=== PATIENT | female | born 1980 | race Caucasian/White ===

== ENCOUNTER → 2017-01-18 | Outpatient (CLI) | payer OTHER ==
[2017-01-18 08:18] LABS: ABSOLUTE BASOPHILS # (AUTO) 0.1 10^3/uL (0.0-0.2); ABSOLUTE EOSINOPHILS # (AUTO) 1.3 10^3/uL (0.0-0.6); ABSOLUTE LYMPHOCYTES (AUTO) 1.9 10^3/uL (0.5-4.7); ABSOLUTE MONOCYTES (AUTO) 0.5 10^3/uL (0.1-1.4); ABSOLUTE NEUT (AUTO) 3.7 10^3/uL (1.7-8.2); BASOPHILS % (AUTO) 1.1 % (0-2); HEMATOCRIT 41.4 % (36.0-47.0); HEMOGLOBIN 14.5 g/dL (12.0-15.5); HGB HCT DIFFERENCE 2.1; LYMPHOCYTES % (AUTO) 25.7 % (13-45); MEAN CORPUSCULAR HEMOGLOBIN 30.6 pg (27.0-33.4); MEAN CORPUSCULAR VOLUME 87 fl (80-97); MONOCYTES % (AUTO) 6.6 % (3-13); RED BLOOD COUNT 4.74 10^6/uL (3.72-5.28); RED CELL DISTRIBUTION WIDTH 12.6 % (11.5-14.0); SEGMENTED NEUTROPHILS % (AUTO) 49.6 % (42-78); WHITE BLOOD COUNT 7.6 10^3/uL (4.0-10.5)
[2017-01-18 08:31] LABS: ALANINE AMINOTRANSFERASE 43 U/L (9-52); ALBUMIN 4.8 g/dL (3.5-5.0); ALKALINE PHOSPHATASE 50 U/L (38-126); ANION GAP 14 (5-19); ASPARTATE AMINO TRANSFERASE 26 U/L (14-36); BILIRUBIN,DIRECT 0.3 mg/dL (0.0-0.4); BILIRUBIN,TOTAL 0.5 mg/dL (0.2-1.3); BLOOD UREA NITROGEN 11 mg/dL (7-20); CALCIUM 9.7 mg/dL (8.4-10.2); CARBON DIOXIDE 26 mmol/L (22-30); CHLORIDE 103 mmol/L (98-107); CHOLESTEROL 185.96 mg/dL (0-200); Direct HDL 65 mg/dL (>40); GLUCOSE 89 mg/dL (75-110); POTASSIUM 4.2 mmol/L (3.6-5.0); SODIUM 143.3 mmol/L (137-145); TOTAL PROTEIN 7.2 g/dL (6.3-8.2); TRIGLYCERIDES 67 mg/dL (<150)
[2017-01-18 08:42] LABS: DIRECT LDL 98 mg/dL (<100)
== END ==
LOC: OD 07:45
PROVIDERS: ATTEND Psychiatry & Neurology Psychiatry
DX: F41.1 Generalized anxiety disorder (principal); Z79.899 Other long term (current) drug therapy
CPT/HCPCS: 36415; 80053; 80061; 83036; 84443; 85025

== ENCOUNTER 2018-05-18 23:01 | Inpatient (IN) | payer OTHER ==
[2018-05-19] MEDS ORDERED: ONDANSETRON HCL INJ/PF 4 MG/2 ML SDV IV ONE (00:10)
[2018-05-19] MEDS ORDERED: MORPHINE SULFATE 10 MG/ML INJ IV ONE (00:10)
[2018-05-19] MEDS ORDERED: NORMAL SALINE 1000 ML 1,000 ML IV ONE (00:10)
[2018-05-19] MEDS ORDERED: HYDROMORPHONE HCL INJ/PF 2 MG/ML AMPULE IV ONE (00:40)
[2018-05-19 00:43] LABS: ABSOLUTE LYMPHOCYTES (AUTO) 0.9 10^3/uL (0.5-4.7); ABSOLUTE MONOCYTES (AUTO) 0.9 10^3/uL (0.1-1.4); ABSOLUTE NEUT (AUTO) 11.5 10^3/uL (1.7-8.2); BASOPHILS % (AUTO) 0.2 % (0-2); EOSINOPHILS % (AUTO) 0.1 % (0-6); HEMATOCRIT 35.7 % (36.0-47.0); HEMOGLOBIN 12.7 g/dL (12.0-15.5); LYMPHOCYTES % (AUTO) 6.7 % (13-45); MEAN CORPUSCULAR HEMOGLOBIN 34.3 pg (27.0-33.4); MEAN CORPUSCULAR HGB CONC 35.5 g/dL (32.0-36.0); MEAN CORPUSCULAR VOLUME 97 fl (80-97); MONOCYTES % (AUTO) 6.4 % (3-13); PLATELET COUNT 437 10^3/uL (150-450); RED BLOOD COUNT 3.69 10^6/uL (3.72-5.28); RED CELL DISTRIBUTION WIDTH 15.8 % (11.5-14.0); SEGMENTED NEUTROPHILS % (AUTO) 86.6 % (42-78); TOTAL CELLS COUNTED % (AUTO) 100 %; WHITE BLOOD COUNT 13.3 10^3/uL (4.0-10.5)
[2018-05-19 00:55] LABS: ALANINE AMINOTRANSFERASE 60 U/L (9-52); ALBUMIN 4.2 g/dL (3.5-5.0); ALKALINE PHOSPHATASE 59 U/L (38-126); ANION GAP 10 (5-19); ASPARTATE AMINO TRANSFERASE 35 U/L (14-36); BILIRUBIN,DIRECT 0.1 mg/dL (0.0-0.4); BILIRUBIN,TOTAL 0.8 mg/dL (0.2-1.3); BLOOD UREA NITROGEN 9 mg/dL (7-20); CALCIUM 9.7 mg/dL (8.4-10.2); CARBON DIOXIDE 23 mmol/L (22-30); CHLORIDE 100 mmol/L (98-107); GLUCOSE 131 mg/dL (75-110); SODIUM 132.8 mmol/L (137-145); TOTAL PROTEIN 7.3 g/dL (6.3-8.2)
[2018-05-19 01:17] LABS: LIPASE 10925.4 U/L (23-300)
--- NOTE | 2018-05-19 01:57 | ER Document Report ---
ED GI/ - General Chief Complaint: Abdominal Pain Stated Complaint: VOMITING Time Seen by Provider: 05/19/18 00:08 Mode of Arrival: Ambulatory Notes: Patient presented to the emergency room with abdominal pain associated with nausea and vomiting which started today. TRAVEL OUTSIDE OF THE [place] IN LAST 30 DAYS: No - HPI Patient complains to provider of: Abdominal pain, Vomiting Onset: Just prior to arrival Timing/Duration: Sudden Quality of pain: Sharp Severity at maximum: Severe Severity in ED: Severe Pain Level: 5 Location: Epigastric Vaginal bleeding (Compared to normal period): None OB ultrasound done: No vitamins taken: No Associated symptoms: Vomiting Exacerbated by: Denies Relieved by: Denies Similar symptoms previously: No Recently seen / treated by doctor: No - Related Data Allergies/Adverse Reactions: lidocaine [From Topicaine] Allergy (Verified 05/19/18 00:17) Past Medical History - Social History Smoking Status: Never Smoker Frequency of alcohol use: None Drug Abuse: None Family History: Reviewed & Not Pertinent Patient has suicidal ideation: No Patient has homicidal ideation: No Renal/ Medical History: Denies: Hx Peritoneal Dialysis Review of Systems - Review of Systems Constitutional: No symptoms reported EENT: No symptoms reported Cardiovascular: No symptoms reported Respiratory: No symptoms reported Gastrointestinal: Abdominal pain, Nausea, Vomiting Genitourinary: No symptoms reported Female Genitourinary: No symptoms reported Musculoskeletal: No symptoms reported Skin: No symptoms reported Hematologic/Lymphatic: No symptoms reported Neurological/Psychological: No symptoms reported -: Yes All other systems reviewed and negative Physical Exam - Vital signs Vitals: Temp Pulse Resp BP Pulse Ox 98.6 F 69 20 135/119 H 100 05/18/18 23:07 05/18/18 23:07 05/18/18 23:07 05/18/18 23:07 05/18/18 23:07 Interpretation: Normal - General General appearance: Appears well, Alert In distress: Moderate - HEENT Head: Normocephalic, Atraumatic Eyes: Normal Pupils: PERRL - Respiratory Respiratory status: No respiratory distress Chest status: Nontender Breath sounds: Normal Chest palpation: Normal - Cardiovascular Rhythm: Regular Heart sounds: Normal auscultation Murmur: No - Abdominal Inspection: Normal Distension: No distension Bowel sounds: Normal Tenderness: Tender - Epigastric area., Guarding. No: Rebound Organomegaly: No organomegaly - Back Back: Normal, Nontender - Extremities General upper extremity: Normal inspection, Nontender, Normal color, Normal ROM, Normal temperature General lower extremity: Normal inspection, Nontender, Normal color, Normal ROM, Normal temperature, Normal weight bearing. No: Wendy's sign - Neurological Neuro grossly intact: Yes Cognition: Normal Orientation: AAOx4 [place] Coma Scale Eye Opening: Spontaneous [place] Coma Scale Verbal: Oriented [place] Coma Scale Motor: Obeys Commands [place] Coma Scale Total: 15 Speech: Normal Motor strength normal: LUE, RUE, LLE, RLE Sensory: Normal - Psychological Associated symptoms: Normal affect, Normal mood - Skin Skin Temperature: Warm Skin Moisture: Dry Skin Color: Normal Course - Vital Signs Vital signs: Temp Pulse Resp BP Pulse Ox 97.3 F 69 19 135/77 H 100 05/19/18 04:39 05/18/18 23:07 05/19/18 04:00 05/19/18 03:01 05/19/18 04:49 - Laboratory Result Diagrams: 05/19/18 00:13 05/19/18 00:13 Laboratory results interpreted by me: 05/19/18 05/19/18 00:13 00:13 WBC 13.3 H RBC 3.69 L Hct 35.7 L MCH 34.3 H RDW 15.8 H Seg Neutrophils % 86.6 H Lymphocytes % 6.7 L Absolute Neutrophils 11.5 H Sodium 132.8 L Glucose 131 H ALT 60 H Lipase 71219.4 H - Diagnostic Test Radiology reviewed: Reports reviewed - Transfer of Care Notes: 05/19/18 03:27 Patient care was discussed with Dr. Jonas Pinzon who is the hospitalist human relations professor that we admit the patient to the hospital for further evaluation and management. Patient is medically stable at this point. Critical Care Note - Critical Care Note Total time excluding time spent on procedures (mins): 40 Discharge - Discharge Clinical Impression: Acute pancreatitis Qualifiers: Pancreatitis type: unspecified pancreatitis type Acute pancreatitis complication: unspecified Qualified Code(s): K85.90 - Acute pancreatitis without necrosis or infection, unspecified Abdominal pain Qualifiers: Abdominal location: epigastric Qualified Code(s): R10.13 - Epigastric pain Nausea and vomiting Qualifiers: Vomiting type: unspecified Vomiting Intractability: non-intractable Qualified Code(s): R11.2 - Nausea with vomiting, unspecified Condition: Stable Disposition: ADMITTED INPATIENT Admitting Provider: Hospitalist Unit Admitted: Medical Floor
[2018-05-19 02:19] LABS: APPEARANCE,URINE CLEAR; BILIRUBIN,URINE NEGATIVE (NEGATIVE); COLOR,URINE STRAW; GLUCOSE, URINE NEGATIVE (NEGATIVE); KETONES,URINE NEGATIVE (NEGATIVE); LEUKOCYTE ESTERASE,URINE NEGATIVE (NEGATIVE); NITRITE,URINE NEGATIVE (NEGATIVE); PROTEIN,URINE NEGATIVE (NEGATIVE); URINE SPECIFIC GRAVITY 1.005; UROBILINOGEN,URINE NEGATIVE mg/dL (<2.0)
--- NOTE | 2018-05-19 02:58 | RADIOLOGY REPORT (SQ) ---
EXAM DESCRIPTION: CT ABDOMEN PELVIS WITH IV CONTRAST COMPLETED DATE/TME: 05/19/2018 01:52 CLINICAL HISTORY: 38 years Female, Abdominal pain. Comparison: None. Technique: IV contrast. Coronal and sagittal reformat. This exam was performed according to our departmental dose-optimization program, which includes automated exposure control, adjustment of the mA and/or kV according to patient size and/or use of iterative reconstruction technique. [facility]: Dose Right [facility]: CareDose [facility]: Dose Right [facility]: Teradose 4D [facility]: Wolfpack Chassis LIMITATIONS: None Findings: Moderate fat inflammation of the right upper abdominal quadrant includes moderate fluid and fat streaking between the pancreas, second portion of the duodenum, and the inferior aspect of the gallbladder. Tubal ligation clips. Normal appendix. No bowel obstruction. No hydronephrosis or hydroureter. No renal/ureteral stone. Inferior thorax, liver, gallbladder, pancreas, spleen, adrenals, renal system, gastrointestinal tract, pelvic organs, lymphatics, vasculature, and musculoskeleton appear otherwise unremarkable. IMPRESSION: Moderate pancreatitis pattern.
[2018-05-19] MEDS ORDERED: PIPERACILLIN/TAZOBACTAM 3.375 GM VIAL IV ONE (03:11)
[2018-05-19] MEDS ORDERED: MAG HYDROX/AL HYDROX/SIMETH SUSP 30 ML UDCUP PO PRN (03:28)
[2018-05-19] MEDS ORDERED: ACETAMINOPHEN 650 MG SUPP.RECT PR PRN (03:28)
[2018-05-19] MEDS: ONDANSETRON HCL INJ/PF 4 MG/2 ML SDV IV PRN (04:21)
[2018-05-19] MEDS: MORPHINE SULFATE 10 MG/ML INJ IV PRN ×3 (04:22→21:39)
[2018-05-19] MEDS: NORMAL SALINE 1000 ML 1,000 ML IV PRN ×2 (04:26→11:54)
[2018-05-19] MEDS: KETOROLAC TROMETHAMINE INJ/PF 30 MG/1 ML SDV IV PRN ×3 (04:30→20:13)
[2018-05-19] MEDS ORDERED: IMIPENEM/CILASTATIN SODIUM 1,000 MG in NORMAL SALINE 250 ML IV SCH (06:00)
--- NOTE | 2018-05-19 06:28 | PDOC H&P ---
History of Present Illness Admission Date/PCP: 05/19/18 03:54 Patient complains of: Abdominal pain and nausea History of Present Illness: TUTU MCCORD is a 38 year old female with a past medical history of ulcerative colitis on Humira. Patient presents with 2 days of dull epigastric abdominal pain radiating to the back associated with nausea and vomiting of gastric content x1. Prompting evaluation emergency room where she is found to have a lipase of 10,000 without LFT derangement. She receives symptomatic management and referred to the hospitalist for admission. She denies alcohol, recent viral illness or previous episode but admits to several herbal supplements. Past Medical History Medical History: None GI Medical History: Reports: Ulcerative Colitis Past Surgical History Past Surgical History: Reports: Section Social History Information Source: Patient, ON LICENSE OF [facility] Records Lives with: Family Smoking Status: Never Smoker Frequency of Alcohol Use: None Drugs: None - Advance Directive Resuscitation Status: Full Code Family History Family History: Other - Ulcerative colitis Parental Family History Reviewed: Yes Children Family History Reviewed: Yes Sibling(s) Family History Reviewed.: Yes Medication/Allergy Allergies/Adverse Reactions: lidocaine [From Topicaine] Allergy (Verified 05/19/18 00:17) Review of Systems Constitutional: ABSENT: chills, fever(s), headache(s), weight gain, weight loss Eyes: ABSENT: visual disturbances Ears: ABSENT: hearing changes Cardiovascular: ABSENT: chest pain, dyspnea on exertion, edema, orthropnea, palpitations Respiratory: ABSENT: cough, hemoptysis Gastrointestinal: ABSENT: abdominal pain, constipation, diarrhea, hematemesis, hematochezia, nausea, vomiting Genitourinary: ABSENT: dysuria, hematuria Musculoskeletal: ABSENT: joint swelling Integumentary: ABSENT: rash, wounds Neurological: ABSENT: abnormal gait, abnormal speech, confusion, dizziness, focal weakness, syncope Psychiatric: ABSENT: anxiety, depression, homidical ideation, suicidal ideation Endocrine: ABSENT: cold intolerance, heat intolerance, polydipsia, polyuria Hematologic/Lymphatic: ABSENT: easy bleeding, easy bruising Physical Exam Vital Signs: Temp Pulse Resp BP Pulse Ox 97.3 F 69 19 135/77 H 100 05/19/18 04:39 05/18/18 23:07 05/19/18 04:00 05/19/18 03:01 05/19/18 04:49 Intake & Output 05/17/18 05/18/18 05/19/18 11:59 11:59 11:59 Intake Total 1000 Balance 1000 Weight 65.771 kg General appearance: PRESENT: cooperative, mild distress, thin. ABSENT: disheveled, hard of hearing Head exam: PRESENT: atraumatic, normocephalic Eye exam: PRESENT: conjunctiva pink, EOMI, PERRLA. ABSENT: scleral icterus Ear exam: PRESENT: normal external ear exam Mouth exam: PRESENT: moist, tongue midline Neck exam: ABSENT: carotid bruit, JVD, lymphadenopathy, thyromegaly Respiratory exam: PRESENT: clear to auscultation jesse. ABSENT: rales, rhonchi, wheezes Cardiovascular exam: PRESENT: tachycardia. ABSENT: diastolic murmur, rubs, systolic murmur Pulses: PRESENT: normal dorsalis pedis pul Vascular exam: PRESENT: normal capillary refill GI/Abdominal exam: PRESENT: hyperactive bowel sounds, normal bowel sounds, soft, tenderness. ABSENT: distended, guarding, mass, organolmegaly, rebound Rectal exam: PRESENT: deferred Extremities exam: PRESENT: full ROM. ABSENT: calf tenderness, clubbing, pedal edema Neurological exam: PRESENT: alert, awake, oriented to person, oriented to place, oriented to time, oriented to situation, CN II-XII grossly intact. ABSENT: motor sensory deficit Psychiatric exam: PRESENT: appropriate affect, normal mood. ABSENT: homicidal ideation, suicidal ideation Skin exam: PRESENT: dry, intact, warm. ABSENT: cyanosis, rash Results Laboratory Results: 05/19/18 05/19/18 05/19/18 00:13 00:13 00:13 WBC 13.3 H RBC 3.69 L Hgb 12.7 Hct 35.7 L MCV 97 MCH 34.3 H MCHC 35.5 RDW 15.8 H Plt Count 437 Seg Neutrophils % 86.6 H Lymphocytes % 6.7 L Monocytes % 6.4 Eosinophils % 0.1 Basophils % 0.2 Absolute Neutrophils 11.5 H Absolute Lymphocytes 0.9 Absolute Monocytes 0.9 Absolute Eosinophils 0.0 Absolute Basophils 0.0 Sodium 132.8 L Potassium 4.0 Chloride 100 Carbon Dioxide 23 Anion Gap 10 BUN 9 Creatinine 0.54 Est GFR ( Amer) > 60 Est GFR (Non-Af Amer) > 60 Glucose 131 H Calcium 9.7 Total Bilirubin 0.8 AST 35 ALT 60 H Alkaline Phosphatase 59 Total Protein 7.3 Albumin 4.2 Lipase 84575.4 H Serum HCG, Qual NEGATIVE Urine Color Urine Appearance Urine pH Ur Specific [place] Urine Protein Urine Glucose (UA) Urine Ketones Urine Blood Urine Nitrite Ur Leukocyte Esterase Urine RBC (Auto) 05/19/18 02:03 WBC RBC Hgb Hct MCV MCH MCHC RDW Plt Count Seg Neutrophils % Lymphocytes % Monocytes % Eosinophils % Basophils % Absolute Neutrophils Absolute Lymphocytes Absolute Monocytes Absolute Eosinophils Absolute Basophils Sodium Potassium Chloride Carbon Dioxide Anion Gap BUN Creatinine Est GFR ( Amer) Est GFR (Non-Af Amer) Glucose Calcium Total Bilirubin AST ALT Alkaline Phosphatase Total Protein Albumin Lipase Serum HCG, Qual Urine Color STRAW Urine Appearance CLEAR Urine pH 9.0 Ur Specific [place] 1.005 Urine Protein NEGATIVE Urine Glucose (UA) NEGATIVE Urine Ketones NEGATIVE Urine Blood NEGATIVE Urine Nitrite NEGATIVE Ur Leukocyte Esterase NEGATIVE Urine RBC (Auto) 1 Impressions: Abdomen/Pelvis CT 05/19/18 01:52 IMPRESSION: Moderate pancreatitis pattern. Assessment and Plan - Diagnosis (1) Acute pancreatitis Qualifiers: Pancreatitis type: unspecified pancreatitis type Acute pancreatitis complication: unspecified Qualified Code(s): K85.90 - Acute pancreatitis without necrosis or infection, unspecified Is this a current diagnosis for this admission?: Yes Plan: Complicated by ulcerative colitis and herbal supplement use. CT negative for necrosis, supportive care, bowel rest, consider imipenem, consult patient's gastroenterology and [facility]. (2) Ulcerative colitis Is this a current diagnosis for this admission?: Yes Plan: Anticipate flare, intolerant of Remeron, Solu-Medrol as needed. (3) Abdominal pain Qualifiers: Abdominal location: epigastric Qualified Code(s): R10.13 - Epigastric pain Is this a current diagnosis for this admission?: Yes Plan: Symptomatic management (4) Nausea and vomiting Qualifiers: Vomiting type: unspecified Vomiting Intractability: non-intractable Qualified Code(s): R11.2 - Nausea with vomiting, unspecified Is this a current diagnosis for this admission?: Yes Plan: Secondary to #1, symptomatic management - Time Time Spent with patient: 35 or more minutes - Inpatient Certification Medical Necessity: Need Close Monitoring Due to Risk of Patient Decompensation
[2018-05-19 06:34] LABS: ABSOLUTE EOSINOPHILS # (AUTO) 0.1 10^3/uL (0.0-0.6); ABSOLUTE LYMPHOCYTES (AUTO) 1.8 10^3/uL (0.5-4.7); ABSOLUTE MONOCYTES (AUTO) 1.1 10^3/uL (0.1-1.4); ABSOLUTE NEUT (AUTO) 9.3 10^3/uL (1.7-8.2); BASOPHILS % (AUTO) 0.2 % (0-2); EOSINOPHILS % (AUTO) 0.7 % (0-6); HEMATOCRIT 31.9 % (36.0-47.0); HEMOGLOBIN 11.3 g/dL (12.0-15.5); LYMPHOCYTES % (AUTO) 14.6 % (13-45); MEAN CORPUSCULAR HEMOGLOBIN 34.3 pg (27.0-33.4); MEAN CORPUSCULAR HGB CONC 35.4 g/dL (32.0-36.0); MEAN CORPUSCULAR VOLUME 97 fl (80-97); MONOCYTES % (AUTO) 8.7 % (3-13); PLATELET COUNT 392 10^3/uL (150-450); RED CELL DISTRIBUTION WIDTH 15.3 % (11.5-14.0); SEGMENTED NEUTROPHILS % (AUTO) 75.8 % (42-78); TOTAL CELLS COUNTED % (AUTO) 100 %; WHITE BLOOD COUNT 12.3 10^3/uL (4.0-10.5)
[2018-05-19] MEDS: HEPARIN SOD (PORCINE) 5,000 UNIT/ML 1 ML SYRINGE SUBCUT SCH ×3 (06:46→22:00)
[2018-05-19 06:49] LABS: ALANINE AMINOTRANSFERASE 46 U/L (9-52); ALBUMIN 3.2 g/dL (3.5-5.0); ALKALINE PHOSPHATASE 42 U/L (38-126); ANION GAP 10 (5-19); ASPARTATE AMINO TRANSFERASE 19 U/L (14-36); BILIRUBIN,DIRECT 0.2 mg/dL (0.0-0.4); BILIRUBIN,TOTAL 0.8 mg/dL (0.2-1.3); BLOOD UREA NITROGEN 7 mg/dL (7-20); CARBON DIOXIDE 21 mmol/L (22-30); CHLORIDE 105 mmol/L (98-107); GLUCOSE 104 mg/dL (75-110); POTASSIUM 3.7 mmol/L (3.6-5.0); SODIUM 135.5 mmol/L (137-145); TOTAL PROTEIN 5.4 g/dL (6.3-8.2)
[2018-05-19] MEDS: IMIPENEM/CILASTATIN SODIUM 1,000 MG in NORMAL SALINE 250 ML IV SCH ×3 (08:56→20:13)
[2018-05-19] MEDS: FAMOTIDINE INJ/PF 20 MG/2 ML SDV IV SCH ×2 (09:03→21:32)
[2018-05-19] MEDS ORDERED: PROMETHAZINE HCL INJ 25 MG/1 ML VIAL ONE (10:22)
[2018-05-19] MEDS ORDERED: PROMETHAZINE HCL INJ 25 MG/1 ML VIAL IV PRN (14:45)
[2018-05-19] MEDS: RINGERS SOLUTION,LACTATED 1,000 ML IV PRN ×2 (14:51→20:11)
[2018-05-19] MEDS ORDERED: BISACODYL 10 MG SUPP.RECT PR PRN (15:08)
[2018-05-19] MEDS: METHYLPREDNISOLONE INJ 40 MG/1 ML SDV IV SCH ×2 (15:30→21:33)
--- NOTE | 2018-05-19 16:30 | Progress Note ---
Provider Note Provider Note: Patient admitted for acute pancreatitis, having some improvement of her abdominal pain. said she takes prednisone for UC and hasn't had in a couple of days, will initiate low-dose Solu-Medrol until she can take p.o. again. Also feels like that because she has not had a bowel movement in a couple of days that is making her symptoms worse, and she usually has 1 or 2 bowel movements a day because of her UC, and has requested something for that. Because she is n.p.o. I told her I could give her a suppository, and she agreed to that.
[2018-05-20] MEDS: RINGERS SOLUTION,LACTATED 1,000 ML IV PRN (01:55)
[2018-05-20] MEDS: ONDANSETRON HCL INJ/PF 4 MG/2 ML SDV IV PRN (02:02)
[2018-05-20] MEDS: IMIPENEM/CILASTATIN SODIUM 1,000 MG in NORMAL SALINE 250 ML IV SCH ×2 (02:06→09:34)
[2018-05-20] MEDS: KETOROLAC TROMETHAMINE INJ/PF 30 MG/1 ML SDV IV PRN ×3 (02:06→15:22)
[2018-05-20 06:27] LABS: ABSOLUTE LYMPHOCYTES (AUTO) 0.6 10^3/uL (0.5-4.7); ABSOLUTE MONOCYTES (AUTO) 0.6 10^3/uL (0.1-1.4); ABSOLUTE NEUT (AUTO) 8.7 10^3/uL (1.7-8.2); BASOPHILS % (AUTO) 0.2 % (0-2); EOSINOPHILS % (AUTO) 0.1 % (0-6); HEMATOCRIT 30.5 % (36.0-47.0); LYMPHOCYTES % (AUTO) 5.8 % (13-45); MEAN CORPUSCULAR HEMOGLOBIN 35.2 pg (27.0-33.4); MEAN CORPUSCULAR HGB CONC 36.2 g/dL (32.0-36.0); MEAN CORPUSCULAR VOLUME 97 fl (80-97); MONOCYTES % (AUTO) 6.4 % (3-13); PLATELET COUNT 349 10^3/uL (150-450); RED BLOOD COUNT 3.14 10^6/uL (3.72-5.28); RED CELL DISTRIBUTION WIDTH 16.1 % (11.5-14.0); SEGMENTED NEUTROPHILS % (AUTO) 87.5 % (42-78); TOTAL CELLS COUNTED % (AUTO) 100 %; WHITE BLOOD COUNT 9.9 10^3/uL (4.0-10.5)
[2018-05-20] MEDS: HEPARIN SOD (PORCINE) 5,000 UNIT/ML 1 ML SYRINGE SUBCUT SCH (06:28)
[2018-05-20 06:45] LABS: ALANINE AMINOTRANSFERASE 39 U/L (9-52); ALBUMIN 3.1 g/dL (3.5-5.0); ALKALINE PHOSPHATASE 46 U/L (38-126); ANION GAP 6 (5-19); ASPARTATE AMINO TRANSFERASE 13 U/L (14-36); BILIRUBIN,TOTAL 0.6 mg/dL (0.2-1.3); BLOOD UREA NITROGEN 9 mg/dL (7-20); CALCIUM 9.2 mg/dL (8.4-10.2); CARBON DIOXIDE 21 mmol/L (22-30); CHLORIDE 107 mmol/L (98-107); GLUCOSE 88 mg/dL (75-110); POTASSIUM 4.4 mmol/L (3.6-5.0); SODIUM 133.8 mmol/L (137-145); TOTAL PROTEIN 5.8 g/dL (6.3-8.2)
--- NOTE | 2018-05-20 07:42 | PDOC PROGRESS REPORT ---
Subjective Progress Note for:: 05/20/18 Subjective:: TUTU MCCORD is a 38 year old female with a past medical history of ulcerative colitis on Humira. Patient presents with 2 days of dull epigastric abdominal pain radiating to the back associated with nausea and vomiting of gastric content x1. Prompting evaluation emergency room where she is found to have a lipase of 10,000 without LFT derangement. She received symptomatic management and referred to the hospitalist for admission. She denies alcohol, recent viral illness or previous episode but admits to several herbal supplements. 05/20/2018. No acute events overnight. Abdominal pain is improving. Had one bowel movement this morning. Passing flatus. Persistent mild nausea has had 2 episodes of nonbloody nonbilious vomiting since yesterday. Denies any fever, chills, shortness of breath, chest pain, urinary symptoms. Denies any history of alcoholism, recent viral infection, abdominal trauma, hyperlipidemia. Patient attributes her pancreatitis to 6-mercaptopurine that she has been on chronically for her ulcerative colitis. Humira was added biweekly a year ago which was increased to weekly recently. She is due for her Humira injection today. Need to call her management coordinator at [facility] to see if they want to continue 6-mercaptopurine and Humira at this point. Continue Solu-Medrol at this point. Advance diet as tolerated. Reason For Visit: ACUTE PANCREATITIS ABD PAIN Physical Exam Vital Signs: Temp Pulse Resp BP Pulse Ox 98.4 F 76 16 100/55 L 97 05/20/18 00:00 05/20/18 00:00 05/20/18 00:00 05/20/18 00:00 05/20/18 00:00 Intake & Output 05/19/18 05/20/18 05/21/18 06:59 06:59 06:59 Intake Total 1000 4996 Output Total 200 Balance 1000 4796 Weight 65.771 kg 65.8 kg General appearance: PRESENT: no acute distress, well-developed, well-nourished Head exam: PRESENT: atraumatic, normocephalic Respiratory exam: PRESENT: clear to auscultation jesse. ABSENT: rales, rhonchi, wheezes Cardiovascular exam: PRESENT: RRR. ABSENT: diastolic murmur, rubs, systolic murmur GI/Abdominal exam: PRESENT: guarding, normal bowel sounds, soft, tenderness. ABSENT: distended, mass, organolmegaly, rebound Extremities exam: PRESENT: full ROM. ABSENT: calf tenderness, clubbing, pedal edema Neurological exam: PRESENT: alert, awake, oriented to person, oriented to place, oriented to time, oriented to situation, CN II-XII grossly intact. ABSENT: motor sensory deficit Results Laboratory Results: 05/20/18 06:04 05/20/18 06:04 05/19/18 05/20/18 05/20/18 06:11 06:04 06:04 WBC 9.9 RBC 3.14 L Hgb 11.0 L Hct 30.5 L MCV 97 MCH 35.2 H MCHC 36.2 H RDW 16.1 H Plt Count 349 Seg Neutrophils % 87.5 H Lymphocytes % 5.8 L Monocytes % 6.4 Eosinophils % 0.1 Basophils % 0.2 Absolute Neutrophils 8.7 H Absolute Lymphocytes 0.6 Absolute Monocytes 0.6 Absolute Eosinophils 0.0 Absolute Basophils 0.0 Sodium 133.8 L Potassium 4.4 Chloride 107 Carbon Dioxide 21 L Anion Gap 6 BUN 9 Creatinine 0.45 L Est GFR ( Amer) > 60 Est GFR (Non-Af Amer) > 60 Glucose 88 Calcium 9.2 Total Bilirubin 0.6 AST 13 L ALT 39 Alkaline Phosphatase 46 Total Protein 5.8 L Albumin 3.1 L Lipase 5178.2 H Impressions: Abdomen/Pelvis CT 05/19/18 01:52 IMPRESSION: Moderate pancreatitis pattern. Assessment and Plan - Diagnosis (1) Acute pancreatitis Qualifiers: Pancreatitis type: unspecified pancreatitis type Acute pancreatitis complication: unspecified Qualified Code(s): K85.90 - Acute pancreatitis without necrosis or infection, unspecified Is this a current diagnosis for this admission?: Yes Plan: Likely due to complication of mercaptopurine that patient has been taking chronically for her ulcerative colitis. Denies any recent trauma, alcohol abuse, viral infection, hyperlipidemia. Mild nausea and 2 episodes of vomiting. Passing flatus and had a bowel movement today. Advance diet as tolerated. Supportive measures. Continue IV fluids guided by volume status. I have called her management coordinator at [facility] twice to find out if her mercaptopurine and Humira could be restarted. She is due for her Humira today and will go ahead and give her 1 dose and try again to talk to her management coordinator about resumption of her workup. Also get a lipid panel to rule out any hypertriglyceridemia. (2) Abdominal pain Qualifiers: Abdominal location: epigastric Qualified Code(s): R10.13 - Epigastric pain Is this a current diagnosis for this admission?: Yes Plan: As per problem #1. (3) Nausea and vomiting Qualifiers: Vomiting type: unspecified Vomiting Intractability: non-intractable Qualified Code(s): R11.2 - Nausea with vomiting, unspecified Is this a current diagnosis for this admission?: Yes Plan: Improving. Symptomatic management. Monitor volume status. Continue IV fluids. (4) Ulcerative colitis Is this a current diagnosis for this admission?: Yes Plan: Continue home area, Solu-Medrol to be switched to p.o. prednisone once p.o. tolerant. Will hold mercaptopurine at this point until getting her management coordinator recommendation.
[2018-05-20] MEDS ORDERED: DICYCLOMINE HCL 10 MG CAPSULE PO PRN (08:15)
[2018-05-20] MEDS: METHYLPREDNISOLONE INJ 40 MG/1 ML SDV IV SCH (09:37)
[2018-05-20] MEDS ORDERED: VIT D3 PO SCH (10:00)
[2018-05-20] MEDS ORDERED: [UNRECOGNIZED DRUG - OTHER] PO SCH (10:00)
[2018-05-20] MEDS ORDERED: CALCIUM PHOSPHATE TRIB PO SCH (10:00)
[2018-05-20] MEDS ORDERED: (PENDING PHARMACY ID) (L.Acidoph,Paracasei, B.Lactis [Probiotic] 1 EACH) PO SCH (10:00)
[2018-05-20] MEDS ORDERED: LACTOBACILLUS ACIDOPHILUS 250 MG TAB PO SCH (11:00)
[2018-05-20] MEDS: MORPHINE SULFATE 10 MG/ML INJ IV PRN (11:20)
[2018-05-20 11:49] LABS: TRIGLYCERIDES 33 mg/dL (<150)
[2018-05-20 11:59] LABS: DIRECT LDL 62 mg/dL (<100)
[2018-05-20] MEDS: FAMOTIDINE INJ/PF 20 MG/2 ML SDV IV SCH (15:14)
[2018-05-20 15:55] VITALS: BP 100/55
--- NOTE | 2018-05-20 18:35 | PDOC DISCHARGE SUMMARY ---
General - Admit/Disc Date/PCP Admission Date/Primary Care Provider: 05/19/18 03:54 Discharge Date: 05/20/18 - Discharge Diagnosis (1) Acute pancreatitis Is this a current diagnosis for this admission?: Yes (2) Abdominal pain Is this a current diagnosis for this admission?: Yes (3) Nausea and vomiting Is this a current diagnosis for this admission?: Yes (4) Ulcerative colitis Is this a current diagnosis for this admission?: Yes - Additional Information Resuscitation Status: Full Code Discharge Diet: As Tolerated Discharge Activity: Activity As Tolerated Prescriptions: Promethazine HCl 12.5 mg PO Q4 5 Days #30 tablet Tramadol HCl [Ultram 50 mg Tablet] 50 mg PO Q6HP PRN #40 tablet PRN Reason: Home Medications: Adalimumab [Humira] 40 mg SUBCUT Q7D 05/19/18 Calcium Phosphate Trib/Vit D3 [Calcium + Vitamin D3 Gummies] 1 each PO DAILY 05/19/18 Cetirizine HCl [Zyrtec 10 mg Tablet] 1 tab PO DAILY PRN 05/19/18 Diazepam 5 - 10 mg PO DAILY PRN 05/19/18 Dicyclomine HCl [Bentyl 10 mg Capsule] 10 - 20 mg PO TID PRN 05/19/18 Dronabinol 10 mg BID 05/19/18 L.acidoph,Paracasei, B.lactis [Probiotic] 1 each PO DAILY 05/19/18 Prednisone [Deltasone 10 mg Tablet] 25 mg PO DAILY 05/19/18 Promethazine HCl 12.5 mg PO Q4 5 Days #30 tablet 05/20/18 Tramadol HCl [Ultram 50 mg Tablet] 50 mg PO Q6HP PRN #40 tablet 05/20/18 History of Present Illness History of Present Illness: ROBBIN MCCORD is a 38 year old female with a past medical history of ulcerative colitis on Humira. Patient presents with 2 days of dull epigastric abdominal pain radiating to the back associated with nausea and vomiting of gastric content x1. Prompting evaluation emergency room where she is found to have a lipase of 10,000 without LFT derangement. She received symptomatic management and referred to the hospitalist for admission. She denies alcohol, recent viral illness or previous episode but admits to several herbal supplements. 05/20/2018. No acute events overnight. Abdominal pain is improving. Had one bowel movement this morning. Passing flatus. Mild persistent nausea denies any vomiting. P.o. tolerant. Denies any fever, chills, shortness of breath, chest pain, urinary symptoms. Denies any history of alcoholism, recent viral infection, abdominal trauma, hyperlipidemia. Patient attributes her pancreatitis to 6-mercaptopurine that she has been on chronically for her ulcerative colitis. Humira was added biweekly a year ago which was increased to weekly recently. She is due for her Humira injection today but refused to take it dating stating that she has been feeling worse since being started on Humira. I was able to talk to her auto wrecker at [facility] who advised for her 6-mercaptopurine to be held and Humira to be continued and she could be discharged on her maintenance prednisone to follow-up with him within a week. Hospital Course Hospital Course: (1) Acute pancreatitis Likely due to complication of mercaptopurine that patient has been taking chronically for her ulcerative colitis. Denies any recent trauma, alcohol abuse, viral infection, hyperlipidemia. Lipid panel within normal limits. Mild nausea Passing flatus and had a bowel movement today. P.o. tolerant. She is due for her Humira injection today but refused to take it dating stating that she has been feeling worse since being started on Humira. I was able to talk to her auto wrecker at [facility] who advised for her 6-mercaptopurine to be held and Humira to be continued and she could be discharged on her maintenance prednisone to follow-up with him within a week. (2) Abdominal pain As per problem #1. Was discharged on tramadol as needed. (3) Nausea and vomiting Improved. Patient was discharged on as needed Phenergan to follow-up with her auto wrecker next Wednesday. An appointment was arranged. (4) Ulcerative colitis Per my conversation with her auto wrecker patient could be switched back to help her p.o. maintenance dose to follow-up with him next week. Hold 6- mercaptopurine as per gastroenterology recommendation. Patient refused to take her Humira today. Physical Exam Vital Signs: Temp Pulse Resp BP Pulse Ox 98.5 F 60 16 100/55 L 97 05/20/18 15:42 05/20/18 15:42 05/20/18 15:42 05/20/18 15:42 05/20/18 15:42 Intake & Output 05/19/18 05/20/18 05/21/18 06:59 06:59 06:59 Intake Total 1000 5000 330 Output Total 200 Balance 1000 4800 330 Weight 65.771 kg 65.8 kg General appearance: PRESENT: no acute distress, well-developed, well-nourished Head exam: PRESENT: atraumatic, normocephalic Respiratory exam: PRESENT: clear to auscultation jesse. ABSENT: rales, rhonchi, wheezes Cardiovascular exam: PRESENT: RRR. ABSENT: diastolic murmur, rubs, systolic murmur GI/Abdominal exam: PRESENT: normal bowel sounds, soft, tenderness - Epigastric. ABSENT: distended, guarding, mass, organolmegaly, rebound Neurological exam: PRESENT: alert, awake, oriented to person, oriented to place, oriented to time, oriented to situation, CN II-XII grossly intact. ABSENT: motor sensory deficit Results Laboratory Results: 05/20/18 06:04 05/20/18 06:04 05/20/18 05/20/18 05/20/18 06:04 06:04 06:04 WBC 9.9 RBC 3.14 L Hgb 11.0 L Hct 30.5 L MCV 97 MCH 35.2 H MCHC 36.2 H RDW 16.1 H Plt Count 349 Seg Neutrophils % 87.5 H Lymphocytes % 5.8 L Monocytes % 6.4 Eosinophils % 0.1 Basophils % 0.2 Absolute Neutrophils 8.7 H Absolute Lymphocytes 0.6 Absolute Monocytes 0.6 Absolute Eosinophils 0.0 Absolute Basophils 0.0 Sodium 133.8 L Potassium 4.4 Chloride 107 Carbon Dioxide 21 L Anion Gap 6 BUN 9 Creatinine 0.45 L Est GFR ( Amer) > 60 Est GFR (Non-Af Amer) > 60 Glucose 88 Calcium 9.2 Total Bilirubin 0.6 AST 13 L ALT 39 Alkaline Phosphatase 46 Total Protein 5.8 L Albumin 3.1 L Triglycerides 33 Cholesterol 125.50 LDL Cholesterol Direct 62 VLDL Cholesterol 7.0 L HDL Cholesterol 63 Impressions: Abdomen/Pelvis CT 05/19/18 01:52 IMPRESSION: Moderate pancreatitis pattern. Qualifiers - * PATIENT BEING DISCHARGED WITH ANY OF THE FOLLOWING DIAGNOSIS: No VTE patient discharged on overlapping Therapy?: Yes
== END 2018-05-20 16:27 | disposition home or self-care (01) | DRG 439 ==
LOC: ER 23:01 → EH 05-19 03:54 → 2S 05-19 07:54
PROVIDERS: ADMIT Internal Medicine; ATTEND Internal Medicine
DX: K85.90 Acute pancreatitis without necrosis or infection, unspecified (principal); K51.90 Ulcerative colitis, unspecified, without complications; Z79.899 Other long term (current) drug therapy; T39.4X5A Adverse effect of antirheumatics, not elsewhere classified, initial encounter; Z88.8 Allergy status to other drugs, medicaments and biological substances
CPT/HCPCS: 36415; 74177; 80053; 80061; 81001; 83690; 84703; 85025; 87040; 96361; 96374; 96375; 99291; J0743; J1170; J1885; J2270; J2405; J2543; J2550; J2920; J7030; J7050; J7120; S0028

== ENCOUNTER 2018-06-26 17:37 | Emergency (ER) | payer OTHER ==
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
[2018-06-26 20:01] VITALS: BP 121/71
== END 2018-06-26 20:02 | disposition home or self-care (01) ==
LOC: ER 17:37
DX: M79.641 Pain in right hand (principal); M54.2 Cervicalgia; R07.81 Pleurodynia; M25.521 Pain in right elbow; V87.7XXA Person injured in collision between other specified motor vehicles (traffic), initial encounter
CPT/HCPCS: 99283